=== PATIENT | female | born 1965 | race African-American/Black ===

== ENCOUNTER 2020-12-26 01:38 | Emergency (ER) | payer OTHER, MEDICAID ==
[~2020-12-26] VITALS: Ht 160 cm; Wt 90.0 kg
[~2020-12-26 01:38] MED LIST: TOPUD PO
[2020-12-26 03:50] VITALS: BP 132/87
== END 2020-12-26 03:51 | disposition left against medical advice (07) ==
LOC: ER 01:38
DX: R07.89 Other chest pain (principal); J45.901 Unspecified asthma with (acute) exacerbation
CPT/HCPCS: 93005; 99283